=== PATIENT | male | born 1985 | race Caucasian/White ===

== ENCOUNTER → 2017-03-03 | Outpatient (CLI) | payer OTHER ==
[~2017-03-03] MED LIST: FLEXERIL10 MG PO; LEXAPRO10 MG PO; TYLENOL WITH C1 EACH PO; TYLENOL/COD#31 TAB PO
== END | disposition disaster alternative care site (69) ==
LOC: GRAD 11:30
DX: R31.0 Gross hematuria (principal); N20.0 Calculus of kidney; N42.89 Other specified disorders of prostate

== ENCOUNTER → 2017-03-10 | Day surgery (SDC) | payer OTHER ==
[~2017-03-10] VITALS: Ht 177.8 cm; Wt 75.3 kg
--- NOTE | ~2017-03-10 | OR ---
PATIENT'S NAME: ESTEFANIA GUEVARA [facility] AGE: 31 Y [address] 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 POSTOPERATIVE DIAGNOSIS: Left nephrolithiasis. PROCEDURE PERFORMED: Cystoscopy, left stent placement, and left extracorporeal shock wave lithotripsy. ANESTHESIA: General. COMPLICATIONS: None. INDICATION FOR PROCEDURE: The patient is a 31-year-old male with a prior history of nephrolithiasis. The patient was complaining of intermittent flank pain. An abdominopelvic CT scan revealed a 9 x 8 mm proximal left ureter stone. The patient presents for definitive therapy. DETAILS OF PROCEDURE: After informed consent was obtained, the patient was taken to the operating room. A general anesthetic was applied, and he was placed in a dorsal lithotomy position. The groin area was prepped and draped in a normal sterile fashion. A cystoscope was introduced into the urethra and bladder without difficulty. The left ureteral orifice was identified and cannulated with a guidewire up into the renal pelvis. Next, a 6-[place] multi- length ureteral stent was passed over the guidewire up into the renal pelvis. Radiograph imaging showed good position of the stent. The patient was then placed on the lithotripsy table in a supine position. Fluoroscopy was then used to target his 9 x 8 mm left renal pelvic stone. He received shocks starting at 16 kilovolts and gradually increased to 24 kilovolts. The patient received a total of 3000 shocks, and the stone appeared to fragment well with treatment. The patient tolerated the procedure well and transferred to recovery room in good condition. JOSUE MENSAH MD PATIENT'S NAME: ESTEFANIA GUEVARA [facility] AGE: 31 Y [address] ROOM: [place] [id number] LOCATION[place] [facility] [place] ADMIT DATE: 03/10/2017 OR/Procedure Report DISCHARGE DATE: FAMILY PHYSICIAN: MIGUEL SAMUEL MD ATTENDING PHYSICIAN: Josue Mensah/jesse /[id number] CC: Miguel Samuel MD d: 03/10/17 2318 t: 03/24/17 1454, OPERATIVE SUMMARY
[2017-03-10 14:49] LABS: BASOPHIL % 0.2 %; EOSINOPHIL % 0.3 %; HEMATOCRIT 48.3 % (37.0-53.0); HEMOGLOBIN 16.1 g/dL (12.0-17.0); IMMATURE GRANULOCYTE % 0.1 %; LYMPHOCYTE % 22.6 %; MCH 31.7 pg (27.0-34.0); MCHC 33.3 gm/dL (32.0-36.5); MCV 95.1 fl (83.0-98.0); MONOCYTE # 0.8 K/uL (0.0-1.0); MONOCYTE % 8.8 %; MPV 9.8 fl (9.4-12.4); NEUTROPHIL # (ANC) 5.9 K/uL (1.4-9.0); NRBC % 0 /100WBC (0-0.00); PLATELET COUNT 263 K/uL (150-450); RBC 5.08 M/uL (4.00-6.00); WBC 8.7 K/uL (4.0-11.0)
[2017-03-10 15:07] LABS: ALBUMIN 4.2 gm/dL (3.5-5.0); ALK PHOS 57 IU/L (33-138); ALT 28 IU/L (12-78); ANION GAP 10.7 (10.0-19.0); AST 15 IU/L (10-40); BLOOD UREA NITROGEN 10 mg/dL (6-24); CALCIUM 8.5 mg/dL (8.5-10.5); CHLORIDE 109 mMol/L (96-110); CO2 26 mMol/L (22-32); CREATININE 0.9 mg/dL (0.6-1.3); ESTIMATED GFR (MDRD EQUATION) > 60; POTASSIUM 3.7 mMol/L (3.7-5.1); SODIUM 142 mMol/L (135-145); TOTAL BILIRUBIN 0.4 mg/dL (0.0-1.5); TOTAL PROTEIN 7.3 g/dL (6.0-8.4)
== END | disposition disaster alternative care site (69) ==
LOC: GPOC 03-06 13:00 → GSDC 12:40
PROVIDERS: Urology
PROC: 0TF4XZZ Fragmentation in Left Kidney Pelvis, External Approach (ICD-10-PCS; principal; 2017-03-10)
PROC: 0T778DZ Dilation of Left Ureter with Intraluminal Device, Via Natural or Artificial Opening Endoscopic (ICD-10-PCS; 2017-03-10)
DX: N20.0 Calculus of kidney (principal); Z90.49 Acquired absence of other specified parts of digestive tract; Z88.0 Allergy status to penicillin
CPT/HCPCS: C1769; J1956; J2001; J7030